=== PATIENT | female | born 1980 | race Caucasian/White ===

== ENCOUNTER 2017-05-26 04:55 | Inpatient (IN) | payer OTHER ==
[2017-05-26] VITALS (9 sets, daily range): BP systolic 117–147; BP diastolic 65–92; PULSE 66–76; TEMP 36.4–37; O2SAT 95–100; Ht 172.7 cm; Wt 91.0 kg
[~2017-05-26] VITALS: Ht 172.7 cm; Wt 91.0 kg
[2017-05-26] MEDS ORDERED: FENTANYL CITRATE INJ 50 MCG/1 ML 2 ML VIAL ONE ×3 (05:00→10:53)
[2017-05-26] MEDS ORDERED: CEFAZOLIN SOD 1000MG/55 ML D5W IV STA (05:03)
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
[2017-05-26] MEDS ORDERED: OPTIRAY 320 IV PRN (05:15)
[2017-05-26] MEDS ORDERED: DIPHTHERIA/TETANUS/PERTUSSIS 0.5 ML SYR/VIAL IM. ONE (05:15)
[2017-05-26 05:29] LABS: BASO % 0.1 %; BASO ABS # 0.01 K/uL (0-0.2); COMPLETE YES; EOS % 1.2 %; HEMATOCRIT 35.7 % (37-47); IG% 0.3 %; LYMPH % 23.1 %; LYMPH ABS # 2.38 K/uL (1.2-3.4); MEAN CELL VOLUME 87.7 fL (80-100); MEAN CORPUSCULAR HEMOGLOBIN 28.7 pg (25-34); MEAN CORPUSCULAR HGB CONC 32.8 g/dl (32-36); MEAN PLATELET VOLUME 9.3 fL (7.4-10.4); MONO % 4.7 %; NEUT % 70.6 %; PLATELET COUNT 249 K/uL (130-400); RED BLOOD COUNT 4.07 M/uL (4.2-5.4)
[2017-05-26] MEDS ORDERED: LIDOCAINE HCL 2% 2 ML VIAL (20MG/ML) INFIL STA (05:32)
[2017-05-26 05:34] LABS: ISTAT CREATININE 0.8 mg/dl (0.6-1.3); ISTAT HEMOGLOBIN 12.2 g/dl (12.0-16.0); ISTAT IONIZED CALCIUM 1.17 mmol/l (1.12-1.32)
[2017-05-26] MEDS ORDERED: LIDOCAINE HCL 1% 20 ML VIAL ONE (05:34)
[2017-05-26 05:40] LABS: PARTIAL THROMBOPLASTIN RATIO 0.9; PROTHROMBIN TIME (PATIENT) 11.1 SECONDS (9.0-12.0)
[2017-05-26 05:46] LABS: BUN/CREATININE RATIO 16.5 (10-20); CALCIUM 8.6 mg/dl (8.5-10.1); CREATININE 0.76 mg/dl (0.60-1.20); POTASSIUM 3.5 mmol/L (3.5-5.1)
[2017-05-26] MEDS ORDERED: HYDROmorphone INJ 2 MG/ML SYR/VIAL IM STA (05:46)
[2017-05-26] MEDS: FENTANYL CITRATE INJ 50 MCG/1 ML 2 ML VIAL IV PRN ×3 (05:48→08:55)
[2017-05-26 05:49] LABS: ALB/GLOB RATIO 0.9 (0.9-2)
[2017-05-26 05:57] LABS: PREG INTERNAL NEGATIVE QC NEG CLEAR BACKGROUND; PREG INTERNAL POSITIVE QC POS CONTROL LINE
[2017-05-26] MEDS ORDERED: CEFAZOLIN 2000 MG/60 ML D5W 60 ML IV SCH (06:00)
[2017-05-26] MEDS ORDERED: LIDOCAINE HCL 2% LOCAL 20 ML VIAL INFIL STA (06:01)
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
--- NOTE | 2017-05-26 06:34 | DIAGNOSTIC IMAGING REPORT ---
ADDENDUM Addendum: The distal radial fragments are radially displaced by one full shaft width. Electronically signed by: Eugene Monique M.D. 05/26/2017 6:35 AM Dictated Date/Time: 05/26/2017 6:35 AM ORIGINAL REPORT LEFT FOREARM 2 VIEWS ROUTINE CLINICAL HISTORY: Pain status post trauma COMPARISON: None DISCUSSION: There is extensively comminuted fracture of the distal radius. The distal fragment is ulnarly displaced by one full shaft width, and dorsally displaced by one full shaft width. There are fracture fragments which appear to extend to the lower aspect of the skin. The ulna, extends to the skin surface. There is disruption of the distal radial ulnar joint. IMPRESSION: Extensively comminuted distal radial fracture, with fracture fragments which appear to extend to the skin surface. In addition there is disruption of the radial ulnar joint, and the ulna may protrude through the skin surface as well. Electronically signed by: Eugene Monique M.D. 05/26/2017 6:33 AM Dictated Date/Time: 05/26/2017 6:30 AM
--- NOTE | 2017-05-26 06:38 | DIAGNOSTIC IMAGING REPORT ---
LEFT WRIST 2 VIEW CLINICAL HISTORY: left wrist fracture open PAIN COMPARISON: None. DISCUSSION: There is an extensively comminuted fractures of distal radial metaphysis with equivocal extension to the articular surface. The distal fracture fragments are radially displaced by one full shaft width. There is also dorsal displacement of the distal radial fragments by one full shaft width. Small fracture fragments are also visualized in the lower soft tissues which appear to extend to the skin surface. There is disruption of the distal radioulnar joint and the ulna appears to protrude through the skin surface. IMPRESSION: Extensively comminuted displaced distal radial fracture with fragments which appear to extend to the skin surface. Disruption of the distal radial ulnar joint. The ulna may protrude to the skin surface as well. Electronically signed by: Eugene Monique M.D. 05/26/2017 6:37 AM Dictated Date/Time: 05/26/2017 6:33 AM
--- NOTE | 2017-05-26 06:40 | DIAGNOSTIC IMAGING REPORT ---
CHEST ONE VIEW PORTABLE CLINICAL HISTORY: CENTRAL LINE PLACEMENT COMPARISON STUDY: 05/26/2017 FINDINGS: The cardiac and mediastinal contours remain stable. There has been interval placement of a right internal jugular central venous catheter. The tip projects over the distal aspect the superior vena cava. No pneumothorax is visualized. There is hazy increased density at the left lung base. This may relate to overlying chest wall tissue.[ IMPRESSION: No evidence of pneumothorax status post placement of right internal jugular central venous catheter. Electronically signed by: Eugene Monique M.D. 05/26/2017 6:39 AM Dictated Date/Time: 05/26/2017 6:37 AM
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
[2017-05-26 07:40] LABS: MANUAL MICROSCOPIC REQUIRED? NO; REVIEW REQ? NO; URINE APPEARANCE CLEAR (CLEAR); URINE BILIRUBIN NEG (NEG); URINE COLOR YELLOW; URINE NITRITE NEG (NEG); URINE SPECIFIC GRAVITY 1.045 (1.000-1.030); UROBILINOGEN NEG (NEG); ZZURINE CULT IF INDIC CATH NO
[2017-05-26] MEDS ORDERED: SODIUM CHLORIDE 0.9% 1000ML 1,000 ML IV STA (07:41)
[2017-05-26 08:09] LABS: BENZODIAZEPINE, URINE NEG (NEG); COCAINE,URINE NEG (NEG); PHENCYCLIDINE, URINE NEG (NEG)
--- NOTE | 2017-05-26 08:22 | Surgery Progress Note ---
Surgery Progress Note Date of Service May 26, 2017. Subjective see dictated consult Objective Vital Signs: Date Time Temp Pulse Resp B/P (MAP) Pulse Ox O2 Delivery O2 Flow Rate FiO2 05/26/17 08:01 71 20 134/87 96 Room Air 05/26/17 07:47 79 05/26/17 07:30 68 18 129/77 99 Room Air 05/26/17 07:12 71 18 122/89 98 Room Air 05/26/17 06:15 74 19 100 05/26/17 06:11 132/96 05/26/17 06:10 73 16 100 05/26/17 06:05 68 28 100 05/26/17 06:04 139/88 05/26/17 06:00 72 15 71 05/26/17 05:55 87 19 68 05/26/17 05:50 78 20 69 05/26/17 05:47 135/90 05/26/17 05:45 19 05/26/17 05:40 21 05/26/17 05:35 16 05/26/17 05:30 65 17 05/26/17 05:25 80 18 05/26/17 05:20 66 18 100 05/26/17 05:15 63 16 89 05/26/17 05:10 69 25 05/26/17 05:05 72 05/26/17 05:05 66 16 05/26/17 04:59 130/67 05/26/17 04:58 36.7 64 16 130/67 100 Room Air Laboratory Results: Results Past 24 Hours Test 05/26/17 05:18 05/26/17 05:21 05/26/17 07:25 Range/Units White Blood Count 10.30 4.8-10.8 K/uL Red Blood Count 4.07 4.2-5.4 M/uL Hemoglobin 11.7 12.0-16.0 g/dL Hematocrit 35.7 37-47 % Mean Corpuscular Volume 87.7 80-100 fL Mean Corpuscular Hemoglobin 28.7 25-34 pg Mean Corpuscular Hemoglobin Concent 32.8 32-36 g/dl Platelet Count 249 130-400 K/uL Mean Platelet Volume 9.3 7.4-10.4 fL Neutrophils (%) (Auto) 70.6 % Lymphocytes (%) (Auto) 23.1 % Monocytes (%) (Auto) 4.7 % Eosinophils (%) (Auto) 1.2 % Basophils (%) (Auto) 0.1 % Neutrophils # (Auto) 7.28 1.4-6.5 K/uL Lymphocytes # (Auto) 2.38 1.2-3.4 K/uL Monocytes # (Auto) 0.48 0.11-0.59 K/uL Eosinophils # (Auto) 0.12 0-0.5 K/uL Basophils # (Auto) 0.01 0-0.2 K/uL RDW Standard Deviation 44.8 36.4-46.3 fL RDW Coefficient of Variation 14.0 11.5-14.5 % Immature Granulocyte % (Auto) 0.3 % Immature Granulocyte # (Auto) 0.03 0.00-0.02 K/uL Prothrombin Time 11.1 9.0-12.0 SECONDS Prothromb Time International Ratio 1.0 0.9-1.1 Activated Partial Thromboplast Time 22.2 21.0-31.0 SECONDS Partial Thromboplastin Ratio 0.9 Sodium Level 138 136-145 mmol/L Potassium Level 3.5 3.5-5.1 mmol/L Chloride Level 105 98-107 mmol/L Carbon Dioxide Level 27 21-32 mmol/L Anion Gap 6.0 17.0 16-25 mmol/L Blood Urea Nitrogen 13 7-18 mg/dl Creatinine 0.76 0.60-1.20 mg/dl Est Creatinine Clear Calc Drug Dose 121.9 ml/min Estimated GFR () 117.8 Estimated GFR (Non- 101.6 BUN/Creatinine Ratio 16.5 10-20 Random Glucose 138 70-99 mg/dl Calcium Level 8.6 8.5-10.1 mg/dl Total Bilirubin 0.3 0.2-1 mg/dl Aspartate Amino Transf (AST/SGOT) 39 15-37 U/L Alanine Aminotransferase (ALT/SGPT) 46 12-78 U/L Alkaline Phosphatase 117 45-117 U/L Total Protein 7.2 6.4-8.2 gm/dl Albumin 3.5 3.4-5.0 gm/dl Globulin 3.7 2.5-4.0 gm/dl Albumin/Globulin Ratio 0.9 0.9-2 Human Chorionic Gonadotropin, Qual NEG NEG Ethyl Alcohol mg/dL < 3.0 0-3 mg/dl Bedside Hemoglobin 12.2 12.0-16.0 g/dl Bedside Hematocrit 36 37-47 % Bedside Sodium 139 135-144 mEq/L Bedside Potassium 3.5 3.3-5.0 mEq/L Bedside Chloride 102 101-112 mEq/L Bedside Total CO2 25 24-31 mEq/l Bedside Blood Urea Nitrogen 13 7-18 mg/dl Bedside Creatinine 0.8 0.6-1.3 mg/dl Bedside Glucose (other) 138 70-99 mg/dl Bedside Ionized Calcium (Emma) 1.17 1.12-1.32 mmol/l Urine Color YELLOW Urine Appearance CLEAR CLEAR Urine pH 8.0 4.5-7.5 Urine Specific [place] 1.045 1.000-1.030 Urine Protein NEG NEG Urine Glucose (UA) NEG NEG Urine Ketones NEG NEG Urine Occult Blood NEG NEG Urine Nitrite NEG NEG Urine Bilirubin NEG NEG Urine Urobilinogen NEG NEG Urine Leukocyte Esterase NEG NEG Urine Opiates Screen POS NEG Urine Methadone, Qualitative NEG NEG Urine Barbiturates NEG NEG Urine Phencyclidine (PCP) Level NEG NEG Ur Amphetamine/Methamphetamine NEG NEG MDMA (Ecstasy) Screen POS NEG Urine Benzodiazepines Screen NEG NEG Urine Cocaine Metabolite NEG NEG Urine Marijuana (THC) NEG NEG Assessment & Plan 05/26/17- no significant Head, chest or abdominal injury which would limit surgical intervention of the Lt wrist fracture.Will follow if admitted to the hospital
[2017-05-26] MEDS ORDERED: LORAZEPAM 2 MG/ML 1 ML VIAL IV STA (08:26)
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
[2017-05-26] MEDS ORDERED: D5W AND 1/2NSS 1,000 ML IV SCH (08:53)
[2017-05-26] MEDS ORDERED: SUCCINYLCHOLINE CHLORIDE 20 MG/ML 10 ML VIAL IV ONE (08:54)
[2017-05-26] MEDS ORDERED: ONDANSETRON INJ 2 MG/ML 2 ML VIAL ONE (08:54)
[2017-05-26] MEDS ORDERED: DEXAMETHASONE SOD INJ 4 MG/ML VIAL ONE (08:54)
[2017-05-26] MEDS ORDERED: LIDOCAINE HCL 2% 2 ML VIAL (20MG/ML) ONE (08:54)
[2017-05-26] MEDS ORDERED: MIDAZOLAM HCL 1 MG/ML 2ML VIAL ONE (08:54)
[2017-05-26] MEDS ORDERED: PROPOFOL IV EMULSION 10 MG/ML 20 ML VIAL IV ONE (08:54)
[2017-05-26] MEDS ORDERED: HYDROmorphone INJ 1 MG/ML SYR IV PRN (09:15)
[2017-05-26] MEDS ORDERED: NURSING VERBAL MED ORDER ONE (10:15)
[2017-05-26] MEDS ORDERED: BUPIVACAINE 0.5 % 5 MG/1 ML MPF 30ML VIAL ONE (10:31)
[2017-05-26] MEDS ORDERED: BACITRACIN 50000 UNIT VIAL ONE ×2 (10:31→12:26)
[2017-05-26] MEDS ORDERED: FENTANYL CITRATE INJ 50 MCG/1 ML 2 ML VIAL IV PRN (11:00)
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
[2017-05-26] MEDS ORDERED: ROPIVACAINE 0.5% 5 MG/ML 30 ML VIAL ONE (11:30)
--- NOTE | 2017-05-26 11:34 | History & Physical Bridge Note ---
H&P Re-Evaluation Bridge Note: I have examined the patient, reviewed the History & Physical and in the interval since the performance of the History & Physical I have noted the following changes of clinical significance: No changes noted Plan for I and D with application of external fixator
[2017-05-26] MEDS ORDERED: CEFAZOLIN SOD 1 GM VIAL ONE (12:13)
[2017-05-26] MEDS ORDERED: ZOLPIDEM TARTRATE 5 MG TAB PO PRN (13:15)
[2017-05-26] MEDS ORDERED: ONDANSETRON INJ 2 MG/ML 2 ML VIAL IV PRN (13:15)
[2017-05-26] MEDS ORDERED: MoRPHine SULFATE 2 MG/ML CARP IV PRN (13:15)
[2017-05-26] MEDS ORDERED: BISACODYL 10 MG SUPP PR PRN (13:15)
[2017-05-26] MEDS ORDERED: ALUMINUM/MAGNESIUM/SIMETH (MAALOX MAX) 30 ML UDC PO PRN (13:15)
[2017-05-26] MEDS ORDERED: MAGNESIUM HYDROXIDE SUSP 30 ML UDC PO PRN (13:15)
[2017-05-26] MEDS ORDERED: SOD PHOSPHATE/SOD BIPHOSPHATE ENEMA 132 ML BTL PR PRN (13:15)
--- NOTE | 2017-05-26 13:22 | DIAGNOSTIC IMAGING REPORT ---
Radiology LEFT WRIST 2 VIEWS CLINICAL HISTORY: 36 years-old Female presenting with EX FIX LT WRIST. TECHNIQUE: 2 fluoroscopic spot image(s) obtained as part of an intraoperative procedure. COMPARISON: 05/26/2017. FINDINGS/IMPRESSION: External fixation through the distal radial diaphysis and base of the second metacarpal. Comminuted open distal radial metaphysis fracture now in anatomic alignment although several fracture fragments remain within the fracture plane. Radiocarpal alignment normal. Distal radial ulnar joint also now in anatomic alignment. Ulnar styloid fracture noted. Please see surgical report for further details. Fluoroscopy dosage (mGy): Not available. Fluoroscopy time: 15 seconds. Number of fluoroscopic spot images: 2. Electronically signed by: Margarito Randall M.D. 05/26/2017 1:21 PM Dictated Date/Time: 05/26/2017 1:19 PM
--- NOTE | 2017-05-26 13:47 | Anesthesiology Progress Note ---
Anesthesia Post Op Note Date & Time May 26, 2017 at 13:47 Vital Signs Pain Intensity: 0 Vital Signs Past 12 Hours Date Time Temp Pulse Resp B/P (MAP) Pulse Ox O2 Delivery O2 Flow Rate FiO2 05/26/17 13:30 60 16 139/91 100 Oxymask 5 05/26/17 13:20 58 16 144/89 100 Oxymask 10 05/26/17 13:13 36.0 58 14 122/86 100 Oxymask 10 05/26/17 09:15 96 Room Air 05/26/17 09:01 79 18 131/95 96 Room Air 05/26/17 08:36 67 18 150/84 95 Room Air 05/26/17 08:01 71 20 134/87 96 Room Air 05/26/17 07:47 79 05/26/17 07:30 68 18 129/77 99 Room Air 05/26/17 07:12 71 18 122/89 98 Room Air 05/26/17 06:15 74 19 100 05/26/17 06:11 132/96 05/26/17 06:10 73 16 100 05/26/17 06:05 68 28 100 05/26/17 06:04 139/88 05/26/17 06:00 72 15 71 05/26/17 05:55 87 19 68 05/26/17 05:50 78 20 69 05/26/17 05:47 135/90 05/26/17 05:45 19 05/26/17 05:40 21 05/26/17 05:35 16 05/26/17 05:30 65 17 05/26/17 05:25 80 18 05/26/17 05:20 66 18 100 05/26/17 05:15 63 16 89 05/26/17 05:10 69 25 05/26/17 05:05 72 05/26/17 05:05 66 16 05/26/17 04:59 130/67 05/26/17 04:58 36.7 64 16 130/67 100 Room Air Notes Mental Status: alert / awake / arousable, participated in evaluation Pt Amnestic to Procedure: Yes Nausea / Vomiting: adequately controlled Pain: adequately controlled Airway Patency, RR, SpO2: stable & adequate BP & HR: stable & adequate Hydration State: stable & adequate Anesthetic Complications: no major complications apparent
[2017-05-26] MEDS ORDERED: ATROPINE SULFATE 0.1 MG/ML 5ML SYR IV PRN (14:00)
[2017-05-26] MEDS ORDERED: EpHEDrine SULFATE INJ 50 MG/ML AMP IV PRN (14:00)
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
[2017-05-26] MEDS ORDERED: MoRPHine SULFATE 4 MG/ML 1 ML CARP\\VIAL IV PRN (15:00)
[2017-05-26] MEDS: LACTATED RINGER'S 1000ML 1,000 ML IV SCH (15:35)
[2017-05-26] MEDS: CEFAZOLIN IV 2,000 MG in DEXTROSE 5% 50ML 50 ML IV SCH ×2 (15:36→23:45)
[2017-05-26] MEDS: D5W AND 1/2NSS + 20MEQ KCL 1,000 ML IV SCH ×2 (15:36→23:56)
[2017-05-26] MEDS: OXYCODONE/ACETAMINOPHEN 5-325 TAB PO PRN (21:51)
[2017-05-26] MEDS: SENNA 8.6 MG TAB PO SCH (21:52)
[2017-05-26] MEDS: DOCUSATE SODIUM 100 MG CAP PO SCH (21:52)
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
[2017-05-26] MEDS: MoRPHine SULFATE 2 MG/ML CARP IV PRN (23:46)
[2017-05-27] MEDS: MoRPHine SULFATE 2 MG/ML CARP IV PRN (01:26)
[2017-05-27 02:49] VITALS: BP 148/75; PULSE 60; TEMP 36.9; O2SAT 97
[2017-05-27] MEDS: OXYCODONE/ACETAMINOPHEN 5-325 TAB PO PRN ×4 (03:32→23:47)
[2017-05-27] MEDS ORDERED: HYDROmorphone INJ 0.5 MG/0.5 ML SYR ONE (04:05)
[2017-05-27] MEDS ORDERED: HYDROmorphone INJ 0.5 MG/0.5 ML SYR IV STA (04:13)
[2017-05-27] MEDS ORDERED: NURSING VERBAL MED ORDER ONE (04:15)
[2017-05-27 07:13] VITALS: BP 130/77; PULSE 74; TEMP 36.8; O2SAT 98
[2017-05-27] MEDS: MoRPHine SULFATE 10 MG/ML CARP/VIAL IV PRN ×4 (07:17→21:16)
[2017-05-27 07:58] LABS: HEMATOCRIT 36.2 % (37-47); MEAN CELL VOLUME 89.2 fL (80-100); MEAN CORPUSCULAR HEMOGLOBIN 27.8 pg (25-34); MEAN CORPUSCULAR HGB CONC 31.2 g/dl (32-36); MEAN PLATELET VOLUME 9.5 fL (7.4-10.4); PLATELET COUNT 256 K/uL (130-400); RED BLOOD COUNT 4.06 M/uL (4.2-5.4); WHITE BLOOD COUNT 9.54 K/uL (4.8-10.8)
[2017-05-27 08:06] LABS: INR 1.1 (0.9-1.1); PROTHROMBIN TIME (PATIENT) 11.4 SECONDS (9.0-12.0)
[2017-05-27 08:37] LABS: BUN/CREATININE RATIO 9.5 (10-20); CALCIUM 8.8 mg/dl (8.5-10.1); CREATININE 0.61 mg/dl (0.60-1.20); POTASSIUM 3.7 mmol/L (3.5-5.1)
[2017-05-27] MEDS: LACTATED RINGER'S 1000ML 1,000 ML IV SCH (08:42)
[2017-05-27] MEDS: DOCUSATE SODIUM 100 MG CAP PO SCH ×2 (08:43→21:16)
[2017-05-27] MEDS: MULTIVITAMIN TAB PO SCH (08:43)
[2017-05-27] MEDS: PANTOprazole SOD 40 MG TAB PO SCH (08:43)
[2017-05-27] MEDS: NICOTINE 21 MG/24 HR TDSY TD SCH (08:45)
--- NOTE | 2017-05-27 10:15 | Orthopedic Progress Note ---
Orthopedic Progress Note Date of Service May 27, 2017. Subjective Post OP Day: 1 Reports: pain controlled w PO medications, Denies: chest pain, SOB, nausea / vomiting, light headedness Additional Notes: has c/o numbness in her thumb, also increased pain last evening which is controlled with the Dilaudid. Objective capillary refill less than 2 sec., dressing C/D/I, A&O x3 sensation intact to thumb and all digits, capillary refill <2seconds all digits , has slight decreased motion of her thumb but is able to flex and extend at IP joint and 1st MCP. Date Time Temp Pulse Resp B/P (MAP) Pulse Ox O2 Delivery O2 Flow Rate FiO2 05/27/17 07:45 Room Air 05/27/17 07:13 36.8 74 16 130/77 (94) 98 Room Air 05/27/17 02:49 36.9 60 18 148/75 (99) 97 Room Air 05/26/17 23:58 Nasal Cannula 2.0 05/26/17 23:10 36.5 75 14 126/73 (90) 95 Room Air 05/26/17 19:00 37.0 75 18 124/79 (94) 97 Room Air 05/26/17 17:15 36.4 76 18 136/65 (88) 99 Nasal Cannula 2.0 05/26/17 16:10 36.8 73 17 117/74 (88) 99 Nasal Cannula 2.0 05/26/17 15:40 100 Nasal Cannula 2.0 05/26/17 15:15 36.7 76 17 117/74 (88) 100 Nasal Cannula 2.0 05/26/17 14:54 36.8 66 15 147/92 (110) 99 Nasal Cannula 2.0 05/26/17 14:15 100 Nasal Cannula 2.0 05/26/17 14:15 36.7 73 16 138/92 (107) 100 Nasal Cannula 2.0 05/26/17 14:15 100 Nasal Cannula 2.0 05/26/17 14:10 60 16 136/85 100 Oxymask 2 05/26/17 14:00 59 16 127/88 100 Oxymask 2 05/26/17 13:50 36.2 61 14 130/89 100 Oxymask 2 05/26/17 13:40 59 16 130/93 100 Oxymask 2 05/26/17 13:30 60 16 139/91 100 Oxymask 5 05/26/17 13:20 58 16 144/89 100 Oxymask 10 05/26/17 13:13 36.0 58 14 122/86 100 Oxymask 10 Laboratory Results 24 Hours: Test 05/27/17 07:36 Hematocrit 36.2 % Hemoglobin 11.3 g/dL Prothromb Time International Ratio 1.1 Prothrombin Time 11.4 SECONDS Assessment & Plan Assessment: Open Fracture Dislocation Left Wrist with comminuted fractured distal radius and a volarly dislocated ulna through a 6 cm open volar ulnar wound traumatically with disruption of distal radial ulnar joint Procedure(s) Performed POD #1 s/p Left Wrist Incision and Drainage with application External Fixator and wound closure -cont with IV antibiotics until ordered meds are completed -cont with ex fix, sling for comfort, cont to ice/elevate -will keep until at least tomorrow to get better pain control and monitor N/ V. she c/o of numbness in her thumb, has normal sensation throughout thumb and is able to flex/extend all digits. -once discharged, will f/u with dr arroyo early next week to discuss ORIF Discharge Planning Discharge Planning: home
--- NOTE | 2017-05-27 10:25 | Discharge Instructions ---
Discharge Instructions Date of Service May 27, 2017. Admission Reason for Admission: Open Fracture Of Left Wrist Discharge Discharge Diagnosis / Problem: s/p I&D open left wrist fracture with application of external fixator Discharge Goals Goal(s): Decrease discomfort, Improve function, Increase independence Activity Recommendations Activity Limitations: as noted below Lifting Limitations: until after follow-up appointment (no lifting left arm) . Instructions / Follow-Up Instructions / Follow-Up ACTIVITY RECOMMENDATIONS: * Avoid lifting anything with your left arm until instructed to do so. SPECIAL CARE INSTRUCTIONS: * Your bandage should be left in place until your follow up appointment. * Some drainage onto the dressing may occur. This is normal. * If the bandage feels excessively tight, you may loosen the elastic bandage. Then call the physician's office for further instructions. * If possible, keep your hand elevated above the level of your heart as much as possible until your first follow up appointment. You may use a sling if necessary. You should move your fingers regularly (50-100 motions per hour) unless otherwise instructed. SPECIAL PRECAUTIONS: * If you notice increased drainage, fever over 101 degrees F. or severe, unremitting pain, call your physician/office at . * You may have been prescribed pain medication. If you experience nausea and/or skin rash, discontinue this medication and contact our office for an alternative medication. FOLLOW UP VISIT: You have a scheduled appointment with Dominga/Dr Conn at [facility] on 06/02/17 at 2: 45. Please call [facility] if this appt time does not work. Current Hospital Diet Patient's current hospital diet: Regular Diet Discharge Diet Recommended Diet: Regular Diet Procedures Procedures Performed: Left Wrist Incision and Drainage with application External Fixator and wound closure Pending Studies Studies pending at discharge: no Medical Emergencies . Who to Call and When: Medical Emergencies: If at any time you feel your situation is an emergency, please call [phone] immediately. . Non-Emergent Contact Non-Emergency issues call your: Primary Care Provider, Surgeon . "Provider Documentation" section prepared by Steven Mabry. . VTE Core Measure Inpt VTE Proph given/why not?: Treatment not indicated [place] Drug Monitoring Program Search Results: patient reviewed within database, no issues identified
[2017-05-27] MEDS: D5W AND 1/2NSS + 20MEQ KCL 1,000 ML IV SCH (10:42)
[2017-05-27] MEDS: OXYCODONE HCL 10 MG TABCR (OXYCONTIN) PO SCH ×2 (10:46→21:15)
[2017-05-27 11:20] VITALS: BP 137/79; PULSE 74; TEMP 37.1; O2SAT 97
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
[2017-05-27 15:23] VITALS: BP 128/89; PULSE 82; TEMP 36.7; O2SAT 97
[2017-05-27] MEDS: SENNA 8.6 MG TAB PO SCH (21:17)
[2017-05-27 22:55] VITALS: BP 150/94; PULSE 89; TEMP 37.1; O2SAT 96
[2017-05-28] VITALS (7 sets, daily range): BP systolic 129–138; BP diastolic 76–96; PULSE 85–105; TEMP 36.6–37; O2SAT 92–98
[2017-05-28] MEDS: MoRPHine SULFATE 10 MG/ML CARP/VIAL IV PRN ×3 (03:30→11:42)
[2017-05-28] MEDS: OXYCODONE/ACETAMINOPHEN 5-325 TAB PO PRN ×2 (06:01→12:29)
[2017-05-28] MEDS: LACTATED RINGER'S 1000ML 1,000 ML IV SCH (07:43)
[2017-05-28 07:54] LABS: HEMATOCRIT 39.2 % (37-47); MEAN CELL VOLUME 89.3 fL (80-100); MEAN CORPUSCULAR HEMOGLOBIN 29.2 pg (25-34); MEAN CORPUSCULAR HGB CONC 32.7 g/dl (32-36); MEAN PLATELET VOLUME 9.3 fL (7.4-10.4); PLATELET COUNT 269 K/uL (130-400); RED BLOOD COUNT 4.39 M/uL (4.2-5.4); WHITE BLOOD COUNT 10.93 K/uL (4.8-10.8)
[2017-05-28 08:00] LABS: INR 1.1 (0.9-1.1); PROTHROMBIN TIME (PATIENT) 11.6 SECONDS (9.0-12.0)
--- NOTE | 2017-05-28 08:16 | Surgery Progress Note ---
Surgery Progress Note Date of Service May 28, 2017. Subjective resting comfortably at present vital signs and labs are stable Objective Vital Signs: Date Time Temp Pulse Resp B/P (MAP) Pulse Ox O2 Delivery O2 Flow Rate FiO2 05/28/17 07:21 37.0 87 18 138/96 (110) 98 Room Air 05/27/17 23:45 Room Air 05/27/17 22:55 37.1 89 18 150/94 (112) 96 Room Air 05/27/17 15:40 Room Air 05/27/17 15:23 36.7 82 17 128/89 (102) 97 Room Air 05/27/17 11:20 37.1 74 19 137/79 (98) 97 Room Air General Appearance: no apparent distress Respiratory/Chest: no respiratory distress Laboratory Results: Results Past 24 Hours Test 05/28/17 07:37 Range/Units White Blood Count 10.93 4.8-10.8 K/uL Red Blood Count 4.39 4.2-5.4 M/uL Hemoglobin 12.8 12.0-16.0 g/dL Hematocrit 39.2 37-47 % Mean Corpuscular Volume 89.3 80-100 fL Mean Corpuscular Hemoglobin 29.2 25-34 pg Mean Corpuscular Hemoglobin Concent 32.7 32-36 g/dl RDW Standard Deviation 46.8 36.4-46.3 fL RDW Coefficient of Variation 14.3 11.5-14.5 % Platelet Count 269 130-400 K/uL Mean Platelet Volume 9.3 7.4-10.4 fL Prothrombin Time 11.6 9.0-12.0 SECONDS Prothromb Time International Ratio 1.1 0.9-1.1 Assessment & Plan 05/28/17- Does not appear to have significant chest abdominal injury monitor Rt medial chest skin/ subcut tissue for chgs- follow up as needed 05/26/17- no significant Head, chest or abdominal injury which would limit surgical intervention of the Lt wrist fracture.Will follow if admitted to the hospital 05/26/17- no significant Head, chest or abdominal injury which would limit surgical intervention of the Lt wrist fracture.Will follow if admitted to the hospital
[2017-05-28 08:23] LABS: BUN/CREATININE RATIO 14.6 (10-20); CALCIUM 9.3 mg/dl (8.5-10.1); CREATININE 0.65 mg/dl (0.60-1.20); POTASSIUM 3.8 mmol/L (3.5-5.1)
[2017-05-28] MEDS: PANTOprazole SOD 40 MG TAB PO SCH (09:21)
[2017-05-28] MEDS: NICOTINE 21 MG/24 HR TDSY TD SCH (09:21)
[2017-05-28] MEDS: DOCUSATE SODIUM 100 MG CAP PO SCH (09:21)
[2017-05-28] MEDS: MULTIVITAMIN TAB PO SCH (09:21)
[2017-05-28] MEDS: OXYCODONE HCL 10 MG TABCR (OXYCONTIN) PO SCH (09:21)
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
[2017-05-28] MEDS ORDERED: RXC5 PO (11:52)
[2017-05-28] MEDS ORDERED: ACET-1138 PO (11:52)
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
[2017-05-29 12:35] LABS: COD UR 68 NG/ML (CUTOFF=50); HYDROCOD UR NEGATIVE NG/ML (CUTOFF=50); HYDROMOR UR 467 NG/ML (CUTOFF=50); MORPHINE UR 5100 NG/ML (CUTOFF=50); NORHYDROCODONE CONF UR NEGATIVE NG/ML (CUTOFF=50); OXYMORPH UR NEGATIVE NG/ML (CUTOFF=50)
== END 2017-05-28 14:20 | disposition home or self-care (01) | DRG 502 ==
LOC: EDBD 04:55 → C.ED 04:58 → C.MSW 08:56 → ENRESERV 13:56
PROVIDERS: ADMIT Orthopaedic Surgery; ATTEND Orthopaedic Surgery
PROC: 0JDH0ZZ Extraction of Left Lower Arm Subcutaneous Tissue and Fascia, Open Approach (ICD-10-PCS; principal; 2017-05-26 07:30)
PROC: 0JQH0ZZ Repair Left Lower Arm Subcutaneous Tissue and Fascia, Open Approach (ICD-10-PCS; principal; 2017-05-26 07:30)
PROC: 0RS Upper Joints, Reposition (ICD-10-PCS; principal; 2017-05-26 07:30)
PROC: 05HM33Z Insertion of Infusion Device into Right Internal Jugular Vein, Percutaneous Approach (ICD-10-PCS; 2017-05-26 07:30)
DX: S52.592B Other fractures of lower end of left radius, initial encounter for open fracture type I or II (principal); S63.075A Dislocation of distal end of left ulna, initial encounter; Z23 Encounter for immunization; E66.9 Obesity, unspecified; F15.10 Other stimulant abuse, uncomplicated; F17.200 Nicotine dependence, unspecified, uncomplicated; Z68.30 Body mass index [BMI] 30.0-30.9, adult; V47.6XXA Car passenger injured in collision with fixed or stationary object in traffic accident, initial encounter; Y93.I9 Activity, other involving external motion; Y99.8 Other external cause status